=== PATIENT | female | born 1955 ===

== ENCOUNTER → 2025-07-13 | Outpatient (CLI) | payer SELFPAY ==
[2025-07-19 03:27] LABS: HSV SUBTYPE SOURCE LEFT ARM
[2025-07-22 01:22] LABS: VARICELLA-ZOSTER VIRUS BY PCR Not Detected; VARICELLA-ZOSTER VIRUS SOURCE LEFT ARM
== END ==
LOC: LAB 15:15 → LAB SHORT 15:15
PROVIDERS: Student in an Organized Health Care Education/Training Program
DX: L08.9 Local infection of the skin and subcutaneous tissue, unspecified (principal)
CPT/HCPCS: 87529; 87798